=== PATIENT | male | born 1945 | race Caucasian/White ===

== ENCOUNTER 2023-10-03 14:20 | Inpatient (IN) | payer OTHER ==
[~2023-10-03] VITALS: Ht 182.9 cm; Wt 88.6 kg
[~2023-10-03 14:20] MED LIST: CEFEPIME 1 GM in IV D5W 50 ML IV SCH
[2023-10-03] MEDS: IV NS 0.9% 1,000 ML BAG IV ONE (15:00)
[2023-10-03 15:21] LABS: BASOPHILS # (AUTO) 0.1 K/uL (0.0-0.2); BASOPHILS % (AUTO) 2.1 % (0.0-2.0); EOSINOPHILS # (AUTO) 0.1 K/uL (0.0-0.7); HEMATOCRIT 33 % (39-51); HEMOGLOBIN 11.2 g/dL (13.5-17.5); LYMPHOCYTES # (AUTO) 1.1 K/uL (0.8-4.8); MEAN CORPUSCULAR HEMOGLOBIN 34 PG (26.0-33.0); MEAN CORPUSCULAR HGB CONC 34 g/dl (31.0-36.0); MEAN CORPUSCULAR VOLUME 99 fL (80-96); MONOCYTES # (AUTO) 0.8 K/uL (0.1-1.30); MONOCYTES % (AUTO) 11.5 % (2.0-12.0); NEUTROPHILS # (AUTO) 4.9 K/uL (1.8-8.9); NEUTROPHILS % (AUTO) 70.4 % (43.0-81.0); PLATELET COUNT (AUTO) 185 K/uL (150-450); RED BLOOD CELL COUNT(AUTO) 3.32 MIL/uL (4.5-6.0); RED CELL DISTRIBUTION WIDTH 14.6 % (11.5-15.0)
[2023-10-03 15:32] LABS: CALCIUM, SERUM 8.6 mg/dL (8.5-10.1); CARBON DIOXIDE 24 mmol/L (21-32); CHLORIDE 103 mmol/L (98-107); CREATININE 1.3 mg/dL (0.6-1.3); GLUCOSE 103 mg/dL (74-106); SERUM AMMONIA 9 umol/L (11-32); UREA NITROGEN, BLOOD 9 mg/dL (7-18)
[2023-10-03 15:36] LABS: POTASSIUM 2.8 mmol/L (3.5-5.1)
[2023-10-03 15:37] LABS: SODIUM SERUM 139 mmol/L (136-145)
[2023-10-03 15:41] LABS: ALANINE AMINOTRANSFERASE 34 U/L (12-78); ALBUMIN 2.7 g/dL (3.4-5.0); ALCOHOL, BLOOD < 3 mg/dL (0-10); ALKALINE PHOSPHATASE 101 U/L (46-116); ASPARTATE AMINOTRANSFERASE 24 U/L (15-37); BILIRUBIN,DIRECT 0.7 mg/dL (0.0-0.2); BILIRUBIN,TOTAL 1.5 mg/dL (0.2-1.0); TOTAL PROTEIN, SERUM 6.9 g/dL (6.4-8.2)
[2023-10-03 15:44] LABS: ACETAMINOPHEN 0 ug/ml (10-30); SALICYLATE < 0.2 mg/dL (2.8-20.0)
[2023-10-03] MEDS ORDERED: ONDA4TAB11 PO (16:09)
[2023-10-03 16:12] LABS: INR 1.12 (0.91-1.10); PARTIAL THROMBOPLASTIN TIME 25.6 SEC (24.3-34.3); PROTHROMBIN TIME 11.8 SECS (9.2-11.1)
[2023-10-03 17:38] LABS: APPEARANCE,URINE SLIGHTLY CLOUDY (CLEAR); BILIRUBIN,URINE 2+ (NEGATIVE); BLOOD, URINE NEGATIVE Ery/uL (NEGATIVE); COLOR,URINE YELLOW (YELLOW); KETONES,URINE TRACE mg/dL (NEGATIVE); LEUKOCYTE ESTERASE ,URINE TRACE (NEGATIVE); NITRITE, URINE POSITIVE (NEGATIVE); PROTEIN,URINE 1+ mg/dl (NEGATIVE); UGLUCOSE NEGATIVE (NEGATIVE)
[2023-10-03] MEDS: CEFEPIME 1 GM in IV D5W 50 ML IV ONE (18:00)
[2023-10-03 18:07] LABS: AMPHETAMINE, URINE NEGATIVE (NEGATIVE); BARBITURATE, URINE NEGATIVE (NEGATIVE); BENZODIAZEPINE, URINE NEGATIVE (NEGATIVE); CANNABINOID, URINE NEGATIVE (NEGATIVE); COCCAINE, URINE NEGATIVE (NEGATIVE); OPIATE, URINE NEGATIVE (NEGATIVE); PHENCYCLIDINE SCREEN,URINE NEGATIVE (NEGATIVE)
[2023-10-03 18:23] LABS: ADD URINE CULTURE YES; BACTERIA,URINE 1+ /HPF (None Seen); RBC,URINE 0-2 /HPF (0-2); SQUAMOUS EPITHELIAL CELL,UR 0-2 /HPF (None Seen)
[2023-10-03 18:24] LABS: HYALINE CASTS, URINE Many /LPF (None Seen); MUCUS,URINE Moderate /LPF (None Seen)
[2023-10-03] MEDS: VANCOMYCIN 1 GM in IV D5W 250 ML IV ONE (18:59)
[2023-10-03 19:40] VITALS: BP 120/76; TEMP 98.1; O2SAT 98
[2023-10-03] MEDS ORDERED: Z GUARD REMEDY 4 OZ OINT TP PRN (20:30)
[2023-10-03] MEDS ORDERED: MAG HYDROX/AL HYDROX/SIMETH 30 ML UDC PO PRN (20:30)
[2023-10-03] MEDS ORDERED: ONDANSETRON HCL/PF 4 MG/2 ML VIAL IVP PRN (20:30)
[2023-10-03] MEDS ORDERED: MAGNESIUM HYDROXIDE 30 ML UDC PO PRN (20:30)
[2023-10-03] MEDS ORDERED: ACETAMINOPHEN 325 MG TABLET PO PRN (20:30)
[2023-10-03] MEDS ORDERED: ZOLPIDEM TARTRATE 5 MG TABLET PO PRN (20:30)
[2023-10-03] MEDS: ENOXAPARIN SODIUM 40 MG/0.4 ML DISP.SYRIN SQ SCH (21:06)
[2023-10-03] MEDS: IV 1/2NS 1000 ML 1,000 ML IV PRN (22:47)
[2023-10-03 23:57] VITALS: BP 134/82; TEMP 98.1; O2SAT 96
[2023-10-04] MEDS: POTASSIUM CHLORIDE 20 MEQ TAB.PRT.SR PO ONE (02:31)
[2023-10-04 04:37] VITALS: BP 137/82; TEMP 98; O2SAT 98
[2023-10-04 06:56] LABS: BASOPHILS # (AUTO) 0.1 K/uL (0.0-0.2); BASOPHILS % (AUTO) 1.2 % (0.0-2.0); EOSINOPHILS # (AUTO) 0.1 K/uL (0.0-0.7); EOSINOPHILS % (AUTO) 3.3 % (0.0-6.0); HEMATOCRIT 32 % (39-51); HEMOGLOBIN 10.9 g/dL (13.5-17.5); LYMPHOCYTES # (AUTO) 0.9 K/uL (0.8-4.8); LYMPHOCYTES % (AUTO) 20.8 % (20.0-44.0); MEAN CORPUSCULAR HEMOGLOBIN 34 PG (26.0-33.0); MEAN CORPUSCULAR HGB CONC 34 g/dl (31.0-36.0); MEAN CORPUSCULAR VOLUME 99 fL (80-96); MONOCYTES # (AUTO) 0.5 K/uL (0.1-1.30); MONOCYTES % (AUTO) 10.8 % (2.0-12.0); NEUTROPHILS # (AUTO) 2.8 K/uL (1.8-8.9); NEUTROPHILS % (AUTO) 63.9 % (43.0-81.0); PLATELET COUNT (AUTO) 144 K/uL (150-450); RED CELL DISTRIBUTION WIDTH 14.3 % (11.5-15.0); WHITE BLOOD COUNT (AUTO) 4.3 K/uL (4.3-11.0)
[2023-10-04 07:06] LABS: CALCIUM, SERUM 8.3 mg/dL (8.5-10.1); CREATININE 0.7 mg/dL (0.6-1.3); MAGNESIUM 1.7 mg/dL (1.8-2.4); PHOSPHORUS 3.5 mg/dL (2.5-4.9)
[2023-10-04 07:19] LABS: THYROID STIMULATING HORMONE 2.79 uIU/mL (0.358-3.74)
[2023-10-04] MEDS: CEFEPIME 2 GM in IV D5W 100 ML IV SCH (08:10)
[2023-10-04] MEDS: PANTOPRAZOLE 40 MG TABLET.DR PO SCH (08:38)
[2023-10-04] MEDS ORDERED: CEFEPIME 1 GM in IV D5W 50 ML IV SCH (09:00)
[2023-10-04] MEDS: VANCOMYCIN 1 GM in IV D5W 250ml IV SCH (09:24)
[2023-10-04 09:44] VITALS: BP 147/78; TEMP 98.1; O2SAT 99
[2023-10-04] MEDS: MAGNESIUM OXIDE 400 MG TABLET PO ONE ×2 (10:07→10:18)
[2023-10-04 16:00] VITALS: BP 153/82; TEMP 99.7; O2SAT 98
[2023-10-04 20:00] VITALS: BP 136/77; TEMP 98.8; O2SAT 97
[2023-10-05] VITALS: BP 140/84; TEMP 97.7; O2SAT 96
[2023-10-05 04:00] VITALS: BP 159/81; TEMP 97.8; O2SAT 97
[2023-10-05 06:59] LABS: CALCIUM, SERUM 8.5 mg/dL (8.5-10.1); CREATININE 0.6 mg/dL (0.6-1.3); MAGNESIUM 1.6 mg/dL (1.8-2.4); POTASSIUM 2.9 mmol/L (3.5-5.1)
[2023-10-05 07:50] VITALS: BP 156/87; TEMP 99.5; O2SAT 96
[2023-10-05 08:12] VITALS: BP 144/78; TEMP 98.4; O2SAT 98
[2023-10-05] MEDS: GLUCERNA SHAKE 237 ML CAN PO SCH (08:12)
[2023-10-05] MEDS: MAGNESIUM OXIDE 400 MG TABLET PO ONE (09:36)
[2023-10-05] MEDS: POTASSIUM CHLORIDE 20 MEQ POWDER PACKET PO ONE (09:36)
[2023-10-05] MEDS: POTASSIUM CHLORIDE 20 MEQ TAB.PRT.SR PO ONE (12:56)
[2023-10-05 16:24] VITALS: BP 147/88; TEMP 97.5; O2SAT 98
[2023-10-05 20:00] VITALS: BP 156/87; TEMP 99.5; O2SAT 96
[2023-10-06] VITALS (8 sets, daily range): BP systolic 125–161; BP diastolic 74–113; TEMP 98.1–100.4; O2SAT 96–98
[2023-10-06 07:36] LABS: CALCIUM, SERUM 8.6 mg/dL (8.5-10.1); CREATININE 0.6 mg/dL (0.6-1.3); POTASSIUM 4.2 mmol/L (3.5-5.1)
[2023-10-06] MEDS: VANCOMYCIN HCL 1.25 GM in IV D5W 250 ML IV SCH (20:36)
[2023-10-07 06:49] LABS: CALCIUM, SERUM 8.4 mg/dL (8.5-10.1); CREATININE 0.6 mg/dL (0.6-1.3); POTASSIUM 3.1 mmol/L (3.5-5.1)
[2023-10-07 08:00] VITALS: BP 132/72; TEMP 98.4; O2SAT 98
[2023-10-07] MEDS: POTASSIUM CHLORIDE 20 MEQ TAB.PRT.SR PO SCH (10:47)
[2023-10-07 16:00] VITALS: BP 130/75; TEMP 98.6; O2SAT 95; O2SAT 97
== END 2023-10-07 18:00 | disposition home or self-care (01) | DRG 689 ==
LOC: ER 14:24 → TELE 17:37 → MED 10-06 17:24
PROVIDERS: ADMIT Student in an Organized Health Care Education/Training Program; ATTEND Nurse Practitioner Acute Care
DX: N39.0 Urinary tract infection, site not specified (principal); G92.8 Other toxic encephalopathy; H70.002 Acute mastoiditis without complications, left ear; E44.0 Moderate protein-calorie malnutrition; Z59.00 Homelessness unspecified; N17.9 Acute kidney failure, unspecified; E87.6 Hypokalemia; E11.9 Type 2 diabetes mellitus without complications; R16.1 Splenomegaly, not elsewhere classified; B96.89 Other specified bacterial agents as the cause of diseases classified elsewhere; G20.A1 Parkinson's disease without dyskinesia, without mention of fluctuations; F02.80 Dementia in other diseases classified elsewhere, unspecified severity, without behavioral disturbance, psychotic disturbance, mood disturbance, and anxiety; I25.10 Atherosclerotic heart disease of native coronary artery without angina pectoris; D63.8 Anemia in other chronic diseases classified elsewhere; Z91.83 Wandering in diseases classified elsewhere
CPT/HCPCS: 36415; 70450-TC; 71045-TC; 71250-TC; 80048-TC; 80061-TC; 80076-TC; 80202-TC; 81001; 82140-TC; 82607-TC; 82962-TC; 83735-TC; 83921; 84100-TC; 84443-TC; 84484-TC; 85025-TC; 85730-TC; 87086-TC; 97110-TC; 97112-TC; 97116-TC; 97530-TC; 97535-TC; A4223; G0378; G0480; J0692; J1650; J3370; J3490; J7060